=== PATIENT | female | born 1970 | race Caucasian/White ===

== ENCOUNTER 2019-06-21 01:48 | Day surgery (SDC) | payer BC, SELFPAY ==
[2019-06-14 14:55] VITALS: BMI 26.8
[2019-06-21 07:20] VITALS: BP 121/76; PULSE 98; RESP 18; TEMP 36.9; O2SAT 98; BMI 27.0
[2019-06-21] MEDS: LACTATED RINGERS 1,000 ML 150 ML IV CONT (07:35)
--- NOTE | 2019-06-21 07:53 | WPDANESEPPF ---
Anes - Initial Pre Proc Eval Procedure: Operation Date: 06/21/19 08:15 Proposed Procedures p Screening Colonoscopy - Kamran Quintero MD Date/Time: 06/21/19 07:53 Surgeon: Kamran Quintero MD Pre Op Diagnosis: Neoplasm Screening Patient Data Age: 49 Gender: F Height: 5 ft 8 in Weight: 80.6 kg Last Vital Signs Temp 36.9 C 06/21/19 07:20 Pulse 98 06/21/19 07:20 Resp 18 06/21/19 07:20 BP 121/76 06/21/19 07:20 Pulse Ox 98 06/21/19 07:20 Allergies Allergy/AdvReac Type Severity Reaction Status Date / Time codeine AdvReac Unknown NAUSEA AND Verified 06/21/19 07:18 VOMITING hydrocodone AdvReac Unknown NAUSEA AND Verified 06/21/19 07:18 VOMITING STATES SENSITIVE TO ALL PAIN AdvReac Unknown Uncoded 06/21/19 07:18 MEDS WITH NAUSEA AND VOMITING Home Medications Medication Instructions Recorded Confirmed Type cranberry extract 200 mg PO DAILY 06/14/19 06/14/19 History xkxpvctn-vhh-ldouqgu fumarate 9 mg PO DAILY 06/14/19 06/14/19 History [Multi Vitamin] naproxen sodium [Aleve] 220 mg PO Q8H 06/14/19 06/14/19 History sulfamethoxazole-trimethoprim 1 tablet PO DAILY 06/14/19 06/14/19 History Patient hx anesthesia problems: none Family hx anesthesia problems: none PMFSH Past Medical History Medical History Colon cancer screening Osteoarthritis of thumbs, bilateral Tobacco abuse UTI (urinary tract infection) Vitreous floaters of left eye Wellness examination Surgical History Surgical History History of ankle surgery Hx of shoulder surgery Social History Social History Smoking packs per day: 1 Smoking cigarettes per day: 20.0 Smoking status: Current every day smoker Tobacco type: cigarettes Alcohol intake: current Substance use: never Anes - Eval Final PreProcedure Day of Procedure 06/21/19 07:53 Patient weight: overweight Heart: regular rate and rhythm Lungs: clear to auscultation Airway: Mallampati scale class II Neurological: alert and oriented Last oral intake: >/= 8 hours ASA classification: II Emergent: no Anesthetic plan: proceed Anesthesia type and monitoring: general GIVS and standard monitoring Informed Consent: The patient's anesthetic plan and its attendant risks and benefits were discussed with the patient/family/POA. Questions were solicited and answers provided to the satisfaction of the patient/family/POA.
--- NOTE | 2019-06-21 08:12 | PM.HPGS ---
History of Present Illness History of Present Illness Consent: Risks, benefits, and alternatives have been discussed and questions answered. Patient agrees to proceed with procedure. Chief complaint: Neoplasm Screening Narrative: Barbara Soriano is a 49 year old female here for her first screening colonoscopy Review of Systems Constitutional: Constitutional: Denies headache(s) and Denies weakness Eyes: Eyes: Denies blurry vision ENT: Reports Normal hearing present, Denies headache(s) and Denies neck pain Cardiovascular: Cardiovascular: Denies chest pain and Denies dyspnea Respiratory: Respiratory: Denies dyspnea Gastrointestinal: Gastrointestinal: Reports no additional gastrointestinal complaints Genitourinary: Genitourinary: Denies dysuria Musculoskeletal: Musculoskeletal: Denies neck pain Integumentary/Breasts: Skin/Breast: Denies dry skin Neurologic: Reports Normal hearing present, Denies headache(s) and Denies weakness Psychiatric: Psychiatric: Denies anxiety Endocrine: Endocrine: Denies change in body appearance Hematologic/Lymphatic: Hematologic/Lymphatic: Denies easy bleeding Allergic/Immunologic: Allergic/Immunologic: Denies urticaria PMFSH Past Medical History Medical History Colon cancer screening Osteoarthritis of thumbs, bilateral Tobacco abuse UTI (urinary tract infection) Vitreous floaters of left eye Wellness examination Surgical History Surgical History History of ankle surgery Hx of shoulder surgery Social History Social History Smoking packs per day: 1 Smoking cigarettes per day: 20.0 Smoking status: Current every day smoker Tobacco type: cigarettes Alcohol intake: current Substance use: never Meds Home Medications and Allergies Home Medications Medication Instructions Recorded Confirmed Type cranberry extract 200 mg PO DAILY 06/14/19 06/14/19 History lmvmlhel-wri-hjfcxkc fumarate 9 mg PO DAILY 06/14/19 06/14/19 History [Multi Vitamin] naproxen sodium [Aleve] 220 mg PO Q8H 06/14/19 06/14/19 History sulfamethoxazole-trimethoprim 1 tablet PO DAILY 06/14/19 06/14/19 History Allergies Allergy/AdvReac Type Severity Reaction Status Date / Time codeine AdvReac Unknown NAUSEA AND Verified 06/21/19 07:18 VOMITING hydrocodone AdvReac Unknown NAUSEA AND Verified 06/21/19 07:18 VOMITING STATES SENSITIVE TO ALL PAIN AdvReac Unknown Uncoded 06/21/19 07:18 MEDS WITH NAUSEA AND VOMITING Vital Signs Vital Signs - 24 hr 06/21/19 07:20 Temperature 98.4 F Pulse Rate 98 Respiratory Rate 18 Blood Pressure 121/76 Pulse Oximetry 98 Exam Const: General: comfortable and no acute distress HENMT: General nose exam: Normal nares present Eyes: General: appearance normal, both eyes and all related structures Neck: Neck: no JVD Resp: Auscultation: clear to auscultation bilaterally Cardio: Rate: regular rate Rhythm: regular rhythm GI: Inspection: non-distended GI Palp: Yes Soft to palpation Skin: General skin exam: normal color Neuro: General: gait normal Speech: normal speech Extrem: General: normal to inspection Psych: Mental Status: mental status grossly normal Assessment and Plan Assessment and plan (1) Colon cancer screening: Code(s): Z12.11 - Encounter for screening for malignant neoplasm of colon Status: Acute Assessment and Plan: will proceed with colonoscopy
[2019-06-21 08:32] VITALS: BP 107/66; PULSE 68; RESP 18; O2SAT 98
[2019-06-21 08:42] VITALS: BP 110/75; PULSE 75; RESP 18; O2SAT 98
[2019-06-21 08:52] VITALS: BP 103/77; PULSE 66; RESP 18; O2SAT 98
== END 2019-06-21 09:10 | disposition home or self-care (01) ==
PROVIDERS: PCP Physician Assistant; Visit Provider Internal Medicine Gastroenterology
PROC: 0DJD8ZZ Inspection of Lower Intestinal Tract, Via Natural or Artificial Opening Endoscopic (ICD-10-PCS; CPT 45378; principal; 2019-06-21 08:15)
DX: Z12.11 Encounter for screening for malignant neoplasm of colon (principal); D12.2 Benign neoplasm of ascending colon; K57.30 Diverticulosis of large intestine without perforation or abscess without bleeding; K64.8 Other hemorrhoids; F17.210 Nicotine dependence, cigarettes, uncomplicated
CPT/HCPCS: 45380; 88305; J2704; J7120